=== PATIENT | female | born 1960 | race Caucasian/White ===

== ENCOUNTER 2022-05-21 11:32 | Observation (INO) ==
[2022-05-21] MEDS ORDERED: NITROGLYCERIN SL 0.4 MG TABLET SL ONE (11:52)
[2022-05-21] MEDS ORDERED: NITROGLYCERIN SL 0.4 MG TABLET SL PRN (11:55)
[2022-05-21] MEDS ORDERED: ASPIRIN 325 MG TABLET PO STA (11:55)
[2022-05-21] MEDS ORDERED: ENOXAPARIN 100 MG/ML SYRINGE SUBCUT STA (11:55)
[2022-05-21 12:21] LABS: Basophils # 0.1 10*3/uL (0.0-0.2); Basophils % 0.8 % (0.0-0.8); Eosinophils # 0.4 10*3/uL (0.0-0.87); Eosinophils % 3.9 % (0.00-10.9); Hematocrit 43.6 VOL% (35.7-47.0); Hemoglobin 15.1 GM/DL (12.0-16.0); Immature Granulocytes % 0.8 %; Immature Granulocytes Absolute 0.08 #; Lymphocytes # 3.4 10*3/uL (1.4-4.0); Mean Corpuscular HGB Conc 34.6 GM/DL (32-36); Mean Corpuscular Volume 87.6 FL (87-102); Mean Platelet Volume 8.9 FL (9.6-12.0); Monocytes # 1.1 10*3/uL (0.11-0.8); Monocytes % 10.6 % (1.7-12.7); Neutrophils % 51.9 % (38.7-73.9); Platelet Count 217 T/CUMM (130-400); Red Blood Count 4.98 MC/CUMM (3.8-5.5); Red Cell Distribution Width 11.9 % (9.3-17.3); White Blood Count 10.47 T/CUMM (4-12)
[2022-05-21 12:45] LABS: Bilirubin,Total 0.5 MG/DL (0.20-1.00); Calcium 9.4 MG/DL (8.5-10.1); Osmolality,Calculated 278.4 MOS/KG (273-304); Potassium 3.8 MMOL/L (3.5-5.1); Total Protein 7.3 G/DL (6.4-8.2)
[2022-05-21] MEDS ORDERED: NITROGLYCERIN 2% OINT 1 INCH/GM PACK TOP STA (13:21)
[2022-05-21] MEDS ORDERED: NITROGLYCERIN 2% OINT 1 INCH/GM PACK TOP ONE (13:22)
[2022-05-21] MEDS ORDERED: ONDANSETRON 4 MG/2 ML VIAL IV PRN (13:24)
[2022-05-21] MEDS ORDERED: MORPHINE 2 MG/1 ML SYRINGE IV PRN (13:24)
[2022-05-21] MEDS ORDERED: ACETAMINOPHEN 325 MG TABLET PO PRN (13:24)
[2022-05-21] MEDS ORDERED: ALUMINUM/MAGNES/SIMETH MAX STR 30 ML UDCUP PO PRN (13:24)
[2022-05-21] MEDS ORDERED: SODIUM CHLORIDE 0.45% 1,000 ML IV SCH (13:30)
[2022-05-21] MEDS ORDERED: diphenhydrAMINE CAP 50 MG CAPSULE PO ONE (13:30)
[2022-05-21] MEDS ORDERED: DIAZEPAM 5 MG TABLET PO ONE (13:30)
[2022-05-21] MEDS ORDERED: HEPARIN/NACL 0.9% 2 UNITS/ML 2,000 UNIT/1,000 ML BAG IV ONE (14:24)
[2022-05-21] MEDS ORDERED: hydrALAZINE 20 MG/1 ML VIAL IV STA (14:26)
[2022-05-21] MEDS ORDERED: NITROGLYCERIN DRIP 50 MG/250 ML BOTTLE IV ONE (17:15)
[2022-05-21] MEDS ORDERED: MIDAZOLAM 2 MG/2 ML VIAL ONE ×2 (17:15→17:48)
[2022-05-21] MEDS ORDERED: fentaNYL 100 MCG/2 ML VIAL ONE (17:15)
[2022-05-21] MEDS ORDERED: VERAPAMIL 5 MG/2 ML VIAL ONE (17:15)
[2022-05-21] MEDS ORDERED: ENOXAPARIN 60 MG/0.6 ML SYRINGE ONE (17:19)
[2022-05-21] MEDS ORDERED: TICAGRELOR 90 MG TABLET ONE (17:52)
[2022-05-21] MEDS ORDERED: ZALEPLON 5 MG CAPSULE PO PRN (18:03)
[2022-05-21] MEDS ORDERED: ROSUVASTATIN 20 MG TABLET PO SCH (21:00)
[2022-05-21] MEDS: TICAGRELOR 90 MG TABLET PO SCH (22:17)
[2022-05-21] MEDS: carvediloL 3.125 MG TABLET PO SCH (22:17)
[2022-05-22 00:51] LABS: Basophils # 0.1 10*3/uL (0.0-0.2); Basophils % 0.6 % (0.0-0.8); Eosinophils # 0.2 10*3/uL (0.0-0.87); Eosinophils % 1.2 % (0.00-10.9); Hematocrit 42.5 VOL% (35.7-47.0); Hemoglobin 14.7 GM/DL (12.0-16.0); Immature Granulocytes % 0.4 %; Immature Granulocytes Absolute 0.05 #; Lymphocytes % 16.2 % (21.3-54.2); Mean Corpuscular HGB Conc 34.6 GM/DL (32-36); Mean Corpuscular Volume 89.1 FL (87-102); Mean Platelet Volume 9.1 FL (9.6-12.0); Neutrophils % 73.6 % (38.7-73.9); Platelet Count 184 T/CUMM (130-400); Red Blood Count 4.77 MC/CUMM (3.8-5.5); White Blood Count 12.55 T/CUMM (4-12)
[2022-05-22 01:05] LABS: Calcium 8.8 MG/DL (8.5-10.1); Osmolality,Calculated 277.5 MOS/KG (273-304); Potassium 3.7 MMOL/L (3.5-5.1); Risk Ratio 3.79
[2022-05-22] MEDS ORDERED: LEVOTHYROXINE 88 MCG TABLET PO SCH (06:30)
[2022-05-22 06:58] LABS: Free T4 (Free Thyroxine) 1.5 NG/DL (0.76-1.46); Thyroid Stimulating Hormone 0.324 uIU/ml (0.358-3.74)
[2022-05-22 07:39] LABS: Hepatitis B Core IgM Quant 0.06 Index; Hepatitis B Surface Ag Quant < 0.10 Index; Hepatitis B Surface Ag Result Non-Reactive (NonReactive); Hepatitis C Virus Ab Quant < 0.02 Index; Hepatitis C Virus Ab Result Non-Reactive (NonReactive)
[2022-05-22 08:23] VITALS: BP 133/78
[2022-05-22] MEDS ORDERED: PANTOPRAZOLE 40 MG TABLET PO SCH (09:00)
[2022-05-22] MEDS ORDERED: VALSARTAN 80 MG TABLET PO SCH (09:00)
[2022-05-22] MEDS ORDERED: ASPIRIN EC 81 MG TABLET PO SCH (09:00)
[2022-05-22] MEDS ORDERED: CETIRIZINE 10 MG TABLET PO SCH (09:00)
[2022-05-22] MEDS: carvediloL 3.125 MG TABLET PO SCH (09:29)
[2022-05-22] MEDS: TICAGRELOR 90 MG TABLET PO SCH (09:29)
== END 2022-05-22 11:36 | disposition home or self-care (01) ==
LOC: N.ED 11:32 → N.TELEN 11:32
PROVIDERS: ADMIT Internal Medicine Cardiovascular Disease; ATTEND Internal Medicine Cardiovascular Disease
PROC: CLCCHCL (ICD-10-PCS; 2022-05-21 17:15)